=== PATIENT | female | born 1980 | race Caucasian/White ===

== ENCOUNTER 2016-11-21 11:00 | Emergency (ER) | payer SELFPAY ==
[2016-11-21 11:14] VITALS: BP 129/72
[2016-11-21] MEDS ORDERED: LIDOCAINE HCL 20 ML UDC MM ONE (11:35)
[2016-11-21] MEDS ORDERED: KETOROLAC TROMETHAMINE 60 MG/2 ML VIAL IM ONE ×2 (11:35→11:50)
[2016-11-21] MEDS ORDERED: CLINDAMYCIN PHOSPHATE 150 MG/ML VIAL IM ONE (11:35)
--- NOTE | 2016-11-21 11:48 | ERNOTE ---
ENT HPI Date of Service: 11/21/16 Presenting Symptoms: dental pain Time Seen by Provider: 11/21/16 11:27 - Immun/Allergies/Home Medications Immunizations: IMMUNIZATION HX Immunizations Up to Date Yes History of Influenza Vaccine No Hx Pneumococcal Vaccination No Allergies/Adverse Reactions: Allergies Allergy/AdvReac Type Severity Reaction Status Date / Time No Known Allergies Allergy Unverified 11/21/16 11:14 Home Medications: HOME MEDICATIONS Clindamycin HCl [Cleocin HCl] 300 mg PO Q6H #40 capsule 11/21/16 [Last Taken Unknown] Naproxen Sodium [Aleve] 220 mg PO BID PRN 11/21/16 [Last Taken Unknown] oxyCODONE HCL/ACETAMINOPHEN [Percocet 5 MG/325 MG] 1 tab PO QID PRN #7 tab 11/21 [Last Taken Unknown] - History of Present Illness Narrative: Pt. comes in with c/o R maxilla pain for two days. Pt. denies any SOB, CP, NVD , fever, or alleviating factors despite trying garlic, salt water and cold coconut water. Pt. states that eating exacerbates the pain. Review of Systems - Review of Systems Constitutional: Present: no symptoms reported. Absent: recent illness, fever, chills, weakness, fatigue, malaise EYE: Present: no symptoms reported ENT: Present: other - dental pain R maxilla Respiratory: Present: no symptoms reported. Absent: shortness of breath, cough Cardiology: Present: no symptoms reported Gastrointestinal/Abdominal: Present: no symptoms reported. Absent: nausea, vomiting, diarrhea Genitourinary: Present: no symptoms reported Musculoskeletal: Present: no symptoms reported. Absent: back pain, joint pain Skin: Present: no symptoms reported Neurological: Present: no symptoms reported. Absent: headache, dizziness/light- headedness, numbness, tingling All Other Systems: All systems neg except as marked - Patient's Past Medical History Patient History - Medical: No pertinent hx Patient History - Cardiac/Respiratory: No pertinent hx Patient History - Cancer: No Hx of Cancer Patient History - Surgical Procedures: Other Patient History - Other: None - Social History Living Situations: other Abuse History: No History of abuse Psych History: No pertinent hx Smoking Status: Current every day smoker Have you smoked in the past 12 months: Yes Do you dip or chew tobacco: No Alcohol Use: occasionally Drug Use: none - Immunizations Immunizations Up to Date: Yes Hx Pneumococcal Vaccination: No History of Influenza Vaccine: No Physical Exam - Physical Exam General Appearance: Present: wd/wn, alert, no apparent distress Eye Exam: Normal inspection: bilateral, PERRL: bilateral, EOMI: bilateral Ears, Nose, Throat: Present: normal pharynx, other - R maxillary molar with caries and abscess Neck: Present: normal inspection, nontender. Absent: lymphadenopathy (R), lymphadenopathy (L) Respiratory: Present: no respiratory distress, normal breath sounds, no accessory muscle use, chest nontender, lungs clear Cardiovascular/Chest: Present: regular rate, rhythm, no murmur, normal peripheral pulses Gastrointestinal/Abdominal: Present: normal bowel sounds, nontender, nondistended, soft, no organomegaly Back Exam: Present: normal inspection, normal range of motion, no CVA tenderness , no vertebral tenderness Extremity Exam: Present: normal inspection, non-tender, normal range of motion, no edema Neurological Exam: Present: alert, oriented, normal mood/affect, no motor/ sensory deficits Skin Exam: Present: normal color, warm/dry. Absent: pallor, skin rash ED Progress - Vital Signs Patient's Vital Signs:: I have reviewed the patient's vital signs. Vital Signs: Vital Signs 11/21/16 11:07 Temperature 37.4 C Pulse Rate 81 Respiratory 18 Rate Blood Pressure 129/72 O2 Sat by Pulse 99 Oximetry - Progress/Reassessment Chief Complaint: Dental Problem Departure Clinical Impression: Dental abscess - Departure Disposition: Home self-care Condition: Good Instructions: Dental Abscess, [id number], Form - Excuse from Work, School, or Physical Activity Additional Instructions: Please follow up with dentist mike. Prescriptions: Clindamycin HCl [Cleocin HCl] 300 mg PO Q6H #40 capsule oxyCODONE HCL/ACETAMINOPHEN [Percocet 5 MG/325 MG] 1 tab PO QID PRN #7 tab PRN Reason: Pain
== END 2016-11-21 11:57 | disposition home or self-care (01) ==
LOC: MERGE 11:00 → ER 11:00
DX: K04.7 Periapical abscess without sinus (principal); Z72.0 Tobacco use

== ENCOUNTER 2017-03-27 14:36 | Emergency (ER) | payer SELFPAY ==
[2017-03-27] MEDS ORDERED: ALBUTEROL SULFATE/IPRATROPIUM 3 ML NEBU IH ONE ×2 (15:13→15:15)
[2017-03-27] MEDS ORDERED: predniSONE 20 MG TABLET PO ONE (15:13)
[2017-03-27] MEDS ORDERED: predniSONE 20 MG TABLET ONE (15:15)
[2017-03-27 16:19] VITALS: BP 111/65
--- NOTE | 2017-03-27 16:28 | ERNOTE ---
Time Seen by Provider: 03/27/17 14:57 Stated Complaint: URI Presenting Symptoms:: cough, other Source: patient Exam Limitations: no limitations - chest wall pain Immunizations: IMMUNIZATION HX Immunizations Up to Date Yes History of Influenza Vaccine No Hx Pneumococcal Vaccination No Allergies/Adverse Reactions: Allergies No Known Allergies Allergy (Verified 03/27/17 15:00) Home Medications: HOME MEDICATIONS Albuterol Sulfate [Ventolin HFA] 2 puff IH Q6H PRN 7 Days inhaler 03/27/17 [ Last Taken Unknown] Doxycycline Monohydrate 100 mg PO BID #20 tablet 03/27/17 [Last Taken Unknown] Naproxen [Naprosyn] 500 mg PO BID #60 tablet 03/27/17 [Last Taken Unknown] predniSONE [Deltasone] 20 mg PO BID #10 tablet 03/27/17 [Last Taken Unknown] - History of Present Ilness Narrative: Patient presents with cough and left anterior chest wall pain is reproducible palpation, deep breath and cough Timing: constant Severity: moderate Frequency/Possible Cause: Reports: no prior episodes, other - tobacco consumption Modifying Factors - Worsens: Reports: deep breath, other - palpation Associated Symptoms: Reports: cough, other - wheezing Review of Systems - Review of Systems Constitutional: Present: See HPI EYE: Present: no symptoms reported ENT: Present: no symptoms reported Respiratory: Present: cough, wheezing Cardiology: Present: no symptoms reported, chest pain - chest wall pain Gastrointestinal/Abdominal: Present: no symptoms reported Genitourinary: Present: no symptoms reported Musculoskeletal: Present: no symptoms reported Skin: Present: no symptoms reported Neurological: Present: no symptoms reported Endocrine: Present: no symptoms reported Hematologic/Lymphatic: Present: no symptoms reported Psych: Present: no symptoms reported - Patient's Past Medical History Patient History - Medical: No pertinent hx Patient History - Cardiac/Respiratory: No pertinent hx Patient History - Cancer: No Hx of Cancer Patient History - Surgical Procedures: Other Patient History - Other: None - Social History Living Situations: home Abuse History: No History of abuse Psych History: No pertinent hx Does anyone smoke in the home?: Yes - patient smokes Smoking Status: Current every day smoker Have you smoked in the past 12 months: Yes Do you dip or chew tobacco: No Alcohol Use: occasionally Drug Use: none - Immunizations Immunizations Up to Date: Yes Hx Pneumococcal Vaccination: No History of Influenza Vaccine: No Physical Exam - Physical Exam General Appearance: Present: wd/wn, alert, moderate distress Head Exam: Present: normal inspection Eye Exam: Normal inspection: bilateral, PERRL: bilateral Ears, Nose, Throat: Present: normal ENT inspection, H, normal pharynx Neck: Present: normal inspection, nontender Respiratory: Present: no respiratory distress, normal breath sounds, no accessory muscle use, lungs clear, chest tenderness - left anterior chest wall around the shoulder, wheezing Cardiovascular/Chest: Present: regular rate, rhythm, no murmur, normal peripheral pulses Gastrointestinal/Abdominal: Present: normal bowel sounds, nontender, nondistended, soft, no organomegaly Rectal Exam: Present: deferred Back Exam: Present: normal inspection, normal range of motion Extremity Exam: Present: normal inspection, non-tender, no edema, normal range of motion Neurological Exam: Present: alert, oriented, normal mood/affect Skin Exam: Present: normal color, warm/dry Lymphatic Exam: Present: no adenopathy ED Progress - Vital Signs Patient's Vital Signs:: I have reviewed the patient's vital signs. Vital Signs: Vital Signs 03/27/17 03/27/17 03/27/17 14:43 15:20 15:23 Temperature 37.3 C 37.2 C Pulse Rate 135 H 63 73 Respiratory 16 16 16 Rate Blood Pressure 128/81 112/61 O2 Sat by Pulse 100 97 100 Oximetry 03/27/17 16:18 Temperature 36.8 C Pulse Rate 76 Respiratory 14 Rate Blood Pressure 111/65 O2 Sat by Pulse 99 Oximetry - EKG EKG: NSR EKG read: Interp. by me - X-Ray X-Ray #1 X-Ray: chest Interpretation: Reviewed by me - Progress/Reassessment Chief Complaint: Upper Respiratory Symptoms Progress:: Improved Plan - Plan Plan: Patient appears to have chest wall pain with bronchitis. She will be started on antibiotics, inhaler, steroids for the lungs and a nonsteroidal for the chest wall. She will follow-up with her family physician as needed Departure - Departure Clinical Impression: Bronchitis, Chest wall pain, Bronchospasm with bronchitis, acute Disposition: Home self-care Condition: Good Instructions: Bronchospasm, Adult, Acute Bronchitis, [id number], Chest Wall Pain, [id number] Prescriptions: Albuterol Sulfate [Ventolin HFA] 2 puff IH Q6H PRN 7 Days inhaler PRN Reason: Wheezing Doxycycline Monohydrate 100 mg PO BID #20 tablet Naproxen [Naprosyn] 500 mg PO BID #60 tablet predniSONE [Deltasone] 20 mg PO BID #10 tablet
== END 2017-03-27 16:47 | disposition home or self-care (01) ==
LOC: ER 14:36
DX: J20.9 Acute bronchitis, unspecified (principal); R07.89 Other chest pain; F17.200 Nicotine dependence, unspecified, uncomplicated